=== PATIENT | male | born 1995 | race Caucasian/White ===

== ENCOUNTER 2016-11-22 12:59 | Emergency (ER) | payer MEDICAID ==
[~2016-11-22] VITALS: Ht 177.8 cm; Wt 92.5 kg
[2016-11-22 13:16] VITALS: BP 130/75
[2016-11-22] MEDS ORDERED: KETOROLAC 30 MG/ML VIAL IVP ONE (13:40)
--- NOTE | 2016-11-22 14:00 | NUR ---
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 DENIES INCONTINENCE, DENIES DYSURIA. PAIN 7/10 SHARP INTERMITENT NON-RADIATING. AAOx4, PERRLA, BREATHING EVEN AND UNLABORED. ERMD NOTIFIED OF PATIENT STATUS.
--- NOTE | 2016-11-22 14:05 | NUR ---
PATIENT AMBULATED TO BED 5 AT THIS TIME.
--- NOTE | 2016-11-22 14:06 | NUR ---
Patient being evaluated by physician at bedside.
--- NOTE | 2016-11-22 16:05 | NUR ---
PT RESTING. VSS AT THIS TIME. ERMD AWARE OF PATIENT STATUS.
--- NOTE | 2016-11-22 16:15 | NUR ---
Patient discharged with v/s stable. Written and verbal after care instructions given and explained. Patient alert, oriented and verbalized understanding of instructions. Ambulatory with steady gait. All questions addressed prior to discharge. ID band removed. Patient advised to follow up with PMD. Rx of MOTRIN 800MG AND FLEXIRIL 10MG TABLET given. Patient educated on indication of medication including possible reaction and side effects. Opportunity to ask questions provided and answered.
[2016-11-22 16:16] VITALS: BP 124/71
== END 2016-11-22 16:15 | disposition home or self-care (01) ==
LOC: MED 12:59
DX: M54.5 Low back pain (principal); F17.210 Nicotine dependence, cigarettes, uncomplicated
CPT/HCPCS: 36415; 72110; 80053; 81001; 85025; 96374; 99285; J1885

== ENCOUNTER 2021-08-21 21:50 | Emergency (ER) | payer MEDICAID, OTHER ==
[~2021-08-21] VITALS: Ht 177.8 cm; Wt 122.9 kg
[2021-08-21 22:02] VITALS: BP 170/115
--- NOTE | 2021-08-21 22:10 | NUR ---
PT AMBULATED TO BED #6
[2021-08-21] MEDS ORDERED: ALBUTEROL SULFATE/IPRATROPIU 3 ML SOL IH ONE (22:30)
--- NOTE | 2021-08-21 22:43 | NUR ---
BREATHING TREATMENT DONE BY RT
[2021-08-21] MEDS ORDERED: PRED20TA5 PO (23:12)
[2021-08-21] MEDS ORDERED: ALBU0.0912 INH (23:12)
[2021-08-21] MEDS ORDERED: AZIT250T4 PO (23:12)
[2021-08-21 23:25] VITALS: BP 134/70
--- NOTE | 2021-08-21 23:27 | NUR ---
Patient discharged with v/s stable. Written and verbal after care instructions given and explained. Patient alert, oriented and verbalized understanding of instructions. Ambulatory with steady gait. All questions addressed prior to discharge. ID band removed. Patient advised to follow up with PMD. Rx of PROVENTIL INHALER, AZITHROMYCIN, PREDNISON given. Patient educated on indication of medication including possible reaction and side effects. Opportunity to ask questions provided and answered.
== END 2021-08-21 23:36 | disposition home or self-care (01) ==
LOC: MED 21:50
DX: J18.9 Pneumonia, unspecified organism (principal); F12.90 Cannabis use, unspecified, uncomplicated; Z79.899 Other long term (current) drug therapy
CPT/HCPCS: 71045; 94640; 99283; Q0092